=== PATIENT | female | born 1980 | race Caucasian/White ===

== ENCOUNTER 2022-11-30 07:10 | Outpatient (CLI) | payer OTHER, SELFPAY ==
--- NOTE | 2022-11-30 06:27 | W.ANESCHARGE ---
Anesthesia Charges Start Date/Time Anesthesia Start Date: 11/30/22 Stop Date/Time Anesthesia Stop Date: 11/30/22
--- NOTE | 2022-11-30 08:34 | W.ANESCHARGE ---
Anesthesia Charges Start Date/Time Anesthesia Start Date: 11/30/22 Anesthesia Start Time: 08:00 Stop Date/Time Anesthesia Stop Date: 11/30/22 Anesthesia Stop Time: 08:31
== END 2022-11-30 07:11 | disposition home or self-care (01) ==
LOC: OP CLINIC 07:11
PROVIDERS: PCP Physician Assistant Medical; Visit Provider Surgery
DX: R19.4 Change in bowel habit (principal); K63.89 Other specified diseases of intestine; K57.30 Diverticulosis of large intestine without perforation or abscess without bleeding
CPT/HCPCS: 45380; 811; 88305; J2704

== ENCOUNTER 2024-01-02 10:58 | Outpatient (CLI) | payer OTHER, SELFPAY | END 2024-01-02 10:59 | disposition home or self-care (01) | LOC: NFLDREF 10:59 | PROVIDERS: PCP Physician Assistant Medical; Visit Provider Obstetrics & Gynecology | DX: N89.8 Other specified noninflammatory disorders of vagina (principal); N93.9 Abnormal uterine and vaginal bleeding, unspecified | CPT/HCPCS: 84439; 84443 ==

== ENCOUNTER 2024-01-09 15:58 | Outpatient (CLI) | payer OTHER, SELFPAY ==
--- NOTE | 2024-01-09 16:00 | CRLHL7_ITS ---
For Patients: As a result of the Century Cures Act, medical imaging exams and procedure reports are released immediately into your electronic medical record. You may view this report before your referring provider. If you have questions, please contact your health care provider. INDICATION: Abnormal uterine and vaginal bleeding COMPARISON: none TECHNIQUE: 2D driver scale and color Doppler images were acquired of the pelvis using a transabdominal and transvaginal approach. FINDINGS: Sonographic images demonstrate a normal size and smooth outer contour of the uterus. Uterus measures 7.9 cm in length by 3.6 cm in AP diameter by 4.1 cm in transverse dimension. Anterior midline intramural fibroid is present measuring 9 x 8 x 8 millimeters. Posterior intramural fundal fibroid is noted measuring 2.2 x 1.7 x 2.4 cm. scar noted. The endometrial lining appears normal and measures 2.2 mm in composite thickness. The right ovary measures 3.2 x 1.6 x 2.3 cm in size and the left ovary measures 3.4 x 1.7 x 2.4 cm. The ovaries demonstrate normal arterial and venous blood flow on color Doppler analysis. There are no suspicious fluid collections within the cul-de-sac. IMPRESSION: Intramural fibroids measuring up to 2.4 cm. Endometrial thickness 2.2 millimeters. No endometrial fluid. Dictated by Rohan Galarza MD @ 01/10/2024 9:14:56 AM (Electronically Signed)
== END 2024-01-09 15:59 | disposition home or self-care (01) ==
PROVIDERS: PCP Physician Assistant Medical; Visit Provider Obstetrics & Gynecology
DX: N93.9 Abnormal uterine and vaginal bleeding, unspecified (principal); D25.1 Intramural leiomyoma of uterus; R10.2 Pelvic and perineal pain
CPT/HCPCS: 76830; 76856

== ENCOUNTER 2024-01-17 09:29 | Outpatient (CLI) | payer OTHER, SELFPAY | END 2024-01-17 09:30 | disposition home or self-care (01) | PROVIDERS: PCP Physician Assistant Medical; Visit Provider Obstetrics & Gynecology | DX: E07.9 Disorder of thyroid, unspecified (principal); Z13.1 Encounter for screening for diabetes mellitus; R10.2 Pelvic and perineal pain | CPT/HCPCS: 80053; 83520; 84436; 84443; 84445; 86039; 86376; 87086 ==

== ENCOUNTER 2024-03-15 06:05 | Day surgery (SDC) | payer OTHER, SELFPAY ==
[2024-03-15] VITALS (20 sets, daily range): BP systolic 106–134; BP diastolic 67–88; PULSE 64–86; RESP 14–20; TEMP 36.3–37; O2SAT 96–100; BMI 28.9
[2024-03-15] MEDS: LACTATED RINGERS 1000 ML 1,000 ML 100 ML IV ×3 (06:15→10:21)
[2024-03-15 06:59] LABS: Hemoglobin* 14.5 gm/dL (12.0-16.0)
[2024-03-15 07:23] LABS: HCG Qualitative Serum* Negative (Negative)
--- NOTE | 2024-03-15 07:25 | W.PM.H&PU ---
History & Physical Update History & Physical Update H&P Reviewed and patient assessed: No changes noted
[2024-03-15] MEDS: CEFAZOLIN 2 GM INJ IVP (07:52)
[2024-03-15] MEDS: BUPIVACAINE 0.25% 30 ML INJECTION (08:10)
--- NOTE | 2024-03-15 08:10 | P.NB_ITS ---
Nerve Block Nerve Block Time Seen by Provider: 07:42 Date Seen: 03/15/24 Type of block requested by surgeon for post-operative analgesia: TAP Side: bilateral Time out performed: Yes Verification of patient name: Yes Verification of date of : Yes Site marking: site marked Name of person performing procedure: Herberth Continuous monitoring Was continuous monitoring of O2 sat, B/P, fibre composite technician, recorded every 15 minutes?: Yes Procedure Checklist: sterile prep, needles and gloves Ultrasound guided. Images saved: Yes Medications given in 5ml increments after negative aspiration: Marcaine %: 0.25 mL: 30 Needle gauge: 20 and Exparel mL: 10 Patient tolerated procedure well: Yes Additional comments: Needle noted between internal oblique and transversus abdominus. Local spread visualized Block Charges Block Charge (with Pro Fee): TAP Bilateral Use of Ultrasound Machine for Block: Yes- US Guidance/pain block
--- NOTE | 2024-03-15 08:10 | W.ANESCHARGE ---
Anesthesia Charges Start Date/Time Anesthesia Start Date: 03/15/24 Anesthesia Start Time: 07:33 Stop Date/Time Anesthesia Stop Date: 03/15/24 Anesthesia Stop Time: 11:20
[2024-03-15] MEDS: 0.9% SODIUM CHL 50 ML VIAL INJECTION (09:00)
[2024-03-15] MEDS: VASOPRESSIN 20 UNIT/ML INJ INJECTION (09:00)
[2024-03-15] MEDS: ESTROGENS, CONJUGATED VAGINAL 0.625 MG/G CREAM 1 APPLIC VAGINAL ×2 (10:49→11:10)
--- NOTE | 2024-03-15 11:07 | CRLHL7_ITS ---
For Patients: As a result of the Century Cures Act, medical imaging exams and procedure reports are released immediately into your electronic medical record. You may view this report before your referring provider. If you have questions, please contact your health care provider. Indication: 1 MISSING RAYTECH FROM FINAL COUNT Technique: Supine views of the abdomen and pelvis, 2 images Comparison: CT abdomen/pelvis on May 09, 2017 Findings/impression : No radiographic evidence of retained surgical items. No evidence of bowel obstruction. No significant stool burden. Pelvic phleboliths. The osseous structures are unremarkable. Dictated by Jesús Boss MD @ 03/15/2024 11:35:59 AM (Electronically Signed)
--- NOTE | 2024-03-15 11:22 | W.ANESCHARGE ---
Anesthesia Charges Start Date/Time Anesthesia Start Date: 03/15/24 Anesthesia Start Time: 07:33 Stop Date/Time Anesthesia Stop Date: 03/15/24 Anesthesia Stop Time: 11:20
--- NOTE | 2024-03-15 11:30 | SUR.OPER ---
second premarin used on vagainal packing due to removing first packing d/t xray
--- NOTE | 2024-03-15 11:39 | SUR.OPER ---
surgeon and radiologist verified xray images
[2024-03-15] MEDS: fentaNYL 100 MCG/2 ML inj 50 MCG IVP (11:44)
--- NOTE | 2024-03-15 11:56 | SUR.PHASEI ---
iv fluids were at 600, third bag, when pt came into PACU. Unpon discharge from PACU, IV, LR was 300
[2024-03-15] MEDS: LACTATED RINGERS 1000 ML 1,000 ML 40 ML IV (12:39)
--- NOTE | 2024-03-15 13:23 | P.GYNPRC_ITS ---
Procedure Note Date of procedure: 03/15/24 Will [facility] bill your pro fee for this procedure?: Yes Pre-op diagnosis: Chronic pelvic pain, pelvic organ prolapse Post-op diagnosis: Chronic pelvic pain, pelvic organ prolapse Procedure: Total laparoscopic hysterectomy, bilateral salpingectomy, lysis of adhesions, peritoneal biopsies, posterior colporrhaphy Anesthesia: GETA Complications: None Surgeon: Kenya Dale MD Granite Sandblaster Apprentice: Coco Fall Estimated blood loss (mL): 100 Pathology: specimen obtained, sent to pathology (1. uterus and bilateral fallopian tubes 2. left uterosacral ligament biopsy 3.right posterior cul de sac biopsy) Condition: stable Disposition: floor Findings: Exam under anesthesia: posterior vaginal wall prolapse grade 3, anterior vaginal wall prolapse grade 1, apical prolapse grade 1. Cervix: no gross lesions or abnormal discharge. Uterine sound: 7cm. Intra abdominal: thin adhesions of the sigmoid mesentery to the left uterosacral ligament, peritoneal window with scarring on the right cul de sac. Uterus of about 8cm. Fallopian tubes with evidence of previous sterilization procedure with a clip, otherwise grossly normal. Grossly normal ovaries bilaterally. Grossly normal liver, stomach and intestines. Procedure Description: DESCRIPTION OF PROCEDURE: After obtaining informed consent, the patient was taken to the operating room where general anesthesia was obtained without difficulty. She was prepared and draped in the normal sterile fashion in the low dorsal lithotomy position. A Guzman catheter was inserted into the bladder and left to gravity drainage. A medium Graves open-sided speculum was introduced into the vagina. The cervix was visualized and grasped along its anterior lip with a single-tooth tenaculum. The uterus was gently sounded. Sound length was found to be 7 cm. Cervical dilation performed with Hegar dilators. I then placed a Medium VCare uterine manipulator. The tenaculum and speculum were removed. The green VCare cup was digitally pressed up against the cervix and then cinched in place with the blue accessory cup. I then changed gloves and my attention was turned to the abdomen. The inferior aspect of the umbilical fold was injected with 0.25% Marcaine plain. A 5 mm ve rtical incision was then made within the umbilical fold using a scalpel. A direct entry technique was used, a 5 mm laparoscopic port with CO2 gas set at 5mmHg was introduced under direct visualization. The trocar was removed leaving the sleeve in place. The CO2 gas flow was turned to high flow to achieve pneumoperitoneum. The 5 mm laparoscope was used then to carefully inspect the abdomen and pelvis with findings noted above. Pictures were taken for documentation purposes. The patient was placed in Trendelenburg positioning. Two additional ports were placed in the right and left lower quadrants under direct visualization after first anesthetizing the skin and fascia with 0.25% Marcaine plain. On the left side a 11mm port was utilized and on the right side a 5mm port placed. An additional 5mm port was placed on the abdomen at the level of the umbilicus to the left of umbilicus, about 3-4 cm lateral from umbilicus under direct visualization. Once the ports were in place, the VCare manipulator was used to elevate the uterus. The ureters were identified bilaterally along their courses in the pelvic sidewalls. The VCare cup was visualized and palpated with a blunt grasper. Thin adhesions between the sigmoid mesentery and the left uterosacral ligament were released with laparoscopic sheers, hemostasis secured. This allowed great mobilization of the sigmoid colon and visualization and inspection of the posterior Cul de Sac. The left tube was elevated with a graspers. The LigaSure device was used to dissect the tube from it's ovarian and broad ligament and cornual attachments before removing the tube through a lower port. Excellent hemostasis was obtained. The remaining broad ligament attachments were sealed and transected with the LigaSure device. The left round ligament was then sealed in a wide swath and transected with the LigaSure, excellent hemostasis was obtained. The broad ligament was then opened using the LigaSure anteriorly and posteriorly marjorie ng the cervix from the left within the confines of the VCare cup. Pressure was maintained on the uterine manipulator the whole time. The left uterine vessels were sealed in a wide swath and transected with the LigaSure, then the tissues over the VCare cup edge on the left side were thinned using the LigaSure to the midline posteriorly and anteriorly so that the fascial layer could be identified. The right tube was elevated with a graspers. The LigaSure device was used to dissect the tube from it's ovarian and broad ligament and cornual attachments before removing the tube through a lower port. Excellent hemostasis was obtained. The remaining broad ligament attachments were sealed and transected with the LigaSure device. The right round ligament was then sealed in a wide swath and transected with the LigaSure, excellent hemostasis was obtained. The broad ligament was then opened using the LigaSure anteriorly and posteriorly along the cervix from the right within the confines of the VCare cup. Pressure was maintained on the uterine manipulator the whole time. The right uterine vessels were sealed in a wide swath and transected with the LigaSure, then the tissues over the VCare cup edge on the right side were thinned using the LigaSure to the midline posteriorly and anteriorly so that the fascial layer could be identified. Once an adequate dissection was made circumferentially, monopolar laparoscopic spatula was utilized to dissect until identification of the green Vcare cup, tissue dissected circumferentially around the cervix within the groove of the VCare cup. Once the dissection was completed circumferentially, from the vagina the uterine manipulator and the uterus were removed. A glove with sponges were left in the vagina to aid in maintenance of pneumoperitoneum. The vaginal cuff was reapproximated in a running fashion with a V-Loc suture starting from the right side (making sure to incorporate bilateral uterosacral ligaments to the corners of the vaginal cuff) and running across to the left and then back to the midline where the suture was cut flush with the tissues. Utilizing a [place] grasper and laparoscopic sheers, a left uterosacral ligament biopsy was obtained, hemostasis secured with monopolar device. In a similar fashion another biopsy was obtained from the right cul de sac were previously described peritoneal window and scarring were noted. The pelvis was copiously irrigated and hemostasis visualized. Preparations were then made for cystoscopy. Fluorescein was administered intravenously along with the IV fluids. Vaginal glove with sponges removed. The Guzman catheter was removed. The patient was flattened out. Cystoscopy was performed using sterile normal saline as distending medium. The bladder was carefully inspected and noted to be free of filling defects or suture material. Both ureteral orifices were easily visualized and fluorescein tinged urine jets were noted from both sides. The cystoscope was then removed. The Guzman catheter was replaced into the bladder. Attention was once again turned to the abdomen. The abdomen and pelvis were again irrigated and inspected for hemostasis. Marlyn was placed over vaginal cuff and resection sites to further secure hemostasis. Attention was then placed to the 11mm port site and under direct visualization using a Salvador-Donn system the fascia was closed. All instruments were then removed under direct visualization. Pneumoperitoneum was allowed to escape. The skin at all port sites was closed in a subcuticular fashion with 4-0 Vicryl. LiquiBand was then placed over the incisions. Attention was again placed to the vagina, for completion of posterior colporrhaphy. The posterior hymen was grasped with 2 allis clamps to allow entry of three fingers. Midline vagina was marked utilizing Allis clamp. The area of anticipated dissection was injected with dilute vasopressin. A midline incision was made with scalpel from the perineum to the proximal border of the posterior wall defect. Vaginal epithelium was then dissected off of the underlying rectovaginal connective tissue. The rectovaginal fibromuscular layer was then plicated in the midline utilizing Vicryl 2-0, interrupted. The excess vaginal tissue was trimmed. The bulbocavernous muscles were plicated in the midline with Vicryl 2-0, followed by the transverse perineal muscles. The midline incision was then closed in a running fashion using Vicryl 2-0. Vaginal packing with Premarin was left in place in place. All instruments were removed from the vagina. The patient tolerated the procedure well. Sponge count was noted to be incomplete and at the OR, I had to remove the vaginal packing, to complete abdominal and pelvic XRAY which as expected werew negative for any retained foreign body. After this confirmation, I replaced a new vaginal packing with Premarin. Otherwise; lap, needle, and instrument counts were reported as correct x2. The patient was taken to the recovery room awake and in stable condition. She did receive 2 g of IV Ancef preoperatively. Debrief was completed at end of procedure.
[2024-03-15] MEDS: KETOROLAC 30 MG/ML inj IVP ×2 (13:28→20:02)
[2024-03-15] MEDS: OXYCODONE 5 MG TABLET PO ×3 (14:11→23:38)
--- NOTE | 2024-03-15 15:43 | PC.NURSE ---
End of shift [id number]: Pt arrived to the floor from surgery at 1200. She has been A&O but drowsy. VSS and afebrile. Rates pain at a consistent 7/10 in which PRN oxycodone given @ 1410. Encouraged pt to get some PO intake in with pain meds but she declined, saying ?I really don?t feel like eating anything yet?. PIV in right FA infusing LR @ 40 mL/hr per MD order. Guzman catheter intact & patent. Lap sites x3 + umbilical x1 intact with Dermabond. Bilateral SCD?s in place. Pt?s has been at beside, attentive to patient?s needs. ?
[2024-03-15] MEDS: TOPIRAMATE 50 MG TABLET 150 MG PO (20:02)
[2024-03-15] MEDS: SIMETHICONE 80 MG TAB.CHEW 160 MG PO (23:42)
[2024-03-16] MEDS: KETOROLAC 30 MG/ML inj IVP (02:11)
[2024-03-16 03:00] VITALS: BP 113/80; PULSE 78; RESP 18; TEMP 37; O2SAT 98
[2024-03-16] MEDS: OXYCODONE 5 MG TABLET PO (03:18)
--- NOTE | 2024-03-16 06:50 | PC.NURSE ---
SHIFT NOTE 23-07: Pt pleasant, A&O. Scheduled Toradol and PRN Oxycodone given for pain with pt reporting adequate relief. Small amount of bloody drainage overnight. Denies SOB, CP and N/V. Up SBA, tolerated well. Guzman patent and draining.
[2024-03-16 07:03] LABS: Hemoglobin* 12.2 gm/dL (12.0-16.0)
[2024-03-16 07:23] LABS: Creatinine* 0.7 mg/dL (0.5-1.5); Est. Creatinine Clearance* 85.72; Estimated Glomerular Filt Rate 110 ml/min
[2024-03-16 08:10] VITALS: BP 120/75; PULSE 87; RESP 16; TEMP 36.5; O2SAT 98
--- NOTE | 2024-03-16 08:15 | P.DS_ITS ---
DS: Providers Provider Date Seen: 03/16/24 Primary care physician: Paulino Thompson PA-C Admitting Clinician: Concepción Dale MD Attending Physician on discharge: Concepción Dale MD Date of Discharge: 03/16/24 DS: Diagnosis Discharge Diagnosis (1) S/P hysterectomy: Status: Acute Problem details: S/P total laparoscopic hysterectomy, bilateral salpingectomy, lysis of adhesions, peritoneal biopsies, posterior vaginal repair, cystoscopy COMPUTER NETWORK ENGINEER-Discharge Summary Hospital Course Hospital Course Narrative: Patient is a 43 year old admitted on 03/15/2024 for elective surgery. Indication for surgery: Chronic pelvic pain, pelvic organ prolapse. Intraoperative findings were notable for pelvic adhesions, suspected endometriosis, advanced posterior vaginal wall prolapse. She had an uncomplicated surgery. Postoperative course has been uneventful. Vitals have been stable. She has remained afebrile. Today, on postoperative day 1, she reports the pain is well controlled. She has been able to ambulate Without difficulty. She is tolerating regular diet. She is passing flatus. Guzman catheter has been removed, and she is voiding without difficulty. Time Spent with Patient Time attestation: Total time spent providing and/or coordinating discharge services: Time spent: Less than 30 minutes COMPUTER NETWORK ENGINEER - Exam Physical Exam: Vital signs: Temp Pulse Resp BP Pulse Ox O2 Del Method 97.7 F 87 16 120/75 98 Room Air 03/16/24 08:10 03/16/24 08:10 03/16/24 08:10 03/16/24 08:10 03/16/24 08:10 03/16/24 08:10 Narrative: VITAL SIGNS: As noted above. GENERAL APPEARANCE: Alert, cooperative female in no acute distress. MOOD & AFFECT: Normal. HEART: Regular rate and rhythm without murmurs. LUNGS: Lungs are clear to auscultation bilaterally. No crackles, wheezes, or rhonchi. ABDOMEN: Soft, non-distended and nontender. Incisions healing well w/o surrounding erythema, induration or abnormal discharge. : Vaginal packing, not completely soaked and dark blood. EXTREMITIES: Nonedematous. Well perfused. Nontender. NEURO: Intact. COMPUTER NETWORK ENGINEER - DS: Data Data Completed and Pending Labs on day of discharge: Labs from last 24 hours 03/16/24 05:54 Hgb 12.2 Creatinine 0.7 Estimated Creat Clear 85.72 Estimated GFR 110 Procedures Procedures: Procedures Operation Date: 03/15/24 07:30 Actual Procedure Side Surgeon p Total Laparoscopic Hysterectomy, Bilateral Salpingectomy, Cystoscopy, peritoneal biopsies, lysis of adhesions, posterior vaginal repair Concepción Dale MD Discharge Plan Discharge Disposition: Home w/ Parent or Adult Discharging Surgeon: Concepción Dale Follow-Up Appointment: In 2 weeks in clinic, already scheduled Prescriptions: New acetaminophen 325 mg Tablet 1,000 mg PO Q4H PRN (Reason: minor pain) Qty: 30 0RF docusate sodium 100 mg Capsule 100 mg PO BID PRN (Reason: Constipation) Qty: 30 0RF ibuprofen 600 mg Tablet 600 mg PO Q6H Qty: 30 0RF oxycodone 5 mg Tablet 5 mg PO Q4H PRN (Reason: Moderate Pain) Qty: 15 0RF Continued magnesium 250 mg tablet 1,000 mg PO QDAY riboflavin (vitamin B2) 400 mg tablet 400 mg PO QDAY propranolol 10 mg tablet 10 mg PO 3XD topiramate 100 mg tablet 150 mg PO BID alprazolam 0.5 mg tablet 0.5 mg PO 3XD PRN (Reason: anxiety) sumatriptan succinate 100 mg tablet PO cyclobenzaprine 10 mg tablet 10 mg PO DAILY PRN (Reason: muscle relaxation) Activity Level: Activity as Tolerated Activity Detail: No lifting more than 15 pounds for 6 weeks, nothing vaginally for 6 weeks Discharge Diet: Regular Patient Instructions: Laparoscopic Hysterectomy (DC), Enterocele Repair (DC) Follow-up: Paulino Thompson PA-C [Primary Care Provider] - Discharge Orders: Discharge Order (Routine); Ordered 03/16/24 Ordered By: Concepción Dale
[2024-03-16] MEDS: IBUPROFEN 600 MG TABLET PO (08:32)
[2024-03-16] MEDS: TOPIRAMATE 50 MG TABLET 150 MG PO (08:32)
[2024-03-16] MEDS: DOCUSATE SODIUM 100 MG CAPSULE PO (10:45)
== END 2024-03-16 13:07 | disposition home or self-care (01) ==
LOC: OR 06:07 → MEDSURG 06:10
PROVIDERS: PCP Physician Assistant Medical; Visit Provider Obstetrics & Gynecology
PROC: 0UT9FZZ Resection of Uterus, Via Natural or Artificial Opening With Percutaneous Endoscopic Assistance (ICD-10-PCS; CPT 58571; principal; 2024-03-15 07:30)
DX: N81.3 Complete uterovaginal prolapse (principal); G89.29 Other chronic pain; R10.2 Pelvic and perineal pain; N72 Inflammatory disease of cervix uteri; D25.1 Intramural leiomyoma of uterus; D25.0 Submucous leiomyoma of uterus; D25.2 Subserosal leiomyoma of uterus; N73.6 Female pelvic peritoneal adhesions (postinfective); N80.329 Endometriosis of the posterior cul-de-sac, unspecified depth; G89.18 Other acute postprocedural pain
CPT/HCPCS: 58571; 57250; 00840; 36415; 64488; 74018; 76942; 81025; 82565; 84703; 85018; 86850; 86900; 86901; 88304; 88305; 88307; A9270; C9290; J0330; J0665; J0690; J1100; J1630; J1885; J2405; J2704; J2710; J3010; J3475; J3490; J7120

== ENCOUNTER 2025-02-19 09:15 | Outpatient (RCR) | payer OTHER, SELFPAY | END 2025-04-22 16:35 | disposition home or self-care (01) | PROVIDERS: PCP Physician Assistant Medical; Visit Provider Obstetrics & Gynecology | DX: R10.2 Pelvic and perineal pain (principal); Z51.89 Encounter for other specified aftercare | CPT/HCPCS: 97110; 97140; 97161; 97530 ==

== ENCOUNTER 2025-04-22 08:02 | Outpatient (CLI) | payer OTHER, SELFPAY | END 2025-04-22 08:03 | disposition home or self-care (01) | LOC: NFLDREF 04-25 09:32 | PROVIDERS: PCP Physician Assistant Medical; Referring Provider Physician Assistant Medical; Visit Provider Physician Assistant Medical | DX: Z00.00 Encounter for general adult medical examination without abnormal findings (principal) | CPT/HCPCS: 80053; 80061; 84443 ==

== ENCOUNTER 2025-05-28 12:17 | Outpatient (CLI) | payer OTHER, SELFPAY ==
[2025-05-28 23:43] LABS: Bacterial Vaginosis* Negative (Negative); Candida glab/krus NOT DETECTED (No Detected)
== END 2025-05-28 12:18 | disposition home or self-care (01) ==
LOC: FRMREF 12:18
PROVIDERS: PCP Physician Assistant Medical; Visit Provider Obstetrics & Gynecology
DX: N89.8 Other specified noninflammatory disorders of vagina (principal)
CPT/HCPCS: 81513; 87481; 87661